=== PATIENT | male | born 1990 | race Caucasian/White ===

== ENCOUNTER 2021-01-02 19:32 | Emergency (ER) | payer BC, MEDICAID, OTHER ==
[~2021-01-02] VITALS: Ht 188 cm; Wt 99.8 kg
[2021-01-02 22:05] VITALS: BP 139/83
[2021-01-02] MEDS ORDERED: IBUPROFEN 600 MG TABLET PO ONE (23:00)
[2021-01-02] MEDS ORDERED: IBUPROFEN 600 MG TABLET ONE (23:03)
[2021-01-02] MEDS ORDERED: BACI/NEOM/POLY B OINT PKT 1 UDPKT PACKET TP ONE (23:30)
[2021-01-02] MEDS ORDERED: HYDR-4209 PO (23:44)
--- NOTE | 2021-01-02 23:53 | NUR ---
Patient discharged to home in stable condition. Written and verbal after care instructions given. Patient verbalizes understanding of instruction. Pt ambulatory with a steady gait.
== END 2021-01-02 23:55 | disposition home or self-care (01) ==
LOC: ER 19:40
DX: S60.221A Contusion of right hand, initial encounter (principal); S40.011A Contusion of right shoulder, initial encounter; S80.02XA Contusion of left knee, initial encounter; S80.01XA Contusion of right knee, initial encounter; S80.812A Abrasion, left lower leg, initial encounter; S90.512A Abrasion, left ankle, initial encounter; Z88.8 Allergy status to other drugs, medicaments and biological substances; Z79.899 Other long term (current) drug therapy; V49.49XA Driver injured in collision with other motor vehicles in traffic accident, initial encounter; Y93.89 Activity, other specified; Y92.413 State road as the place of occurrence of the external cause; Y99.8 Other external cause status
CPT/HCPCS: 73130-TC